=== PATIENT | female | born 1995 | race American Indian/Alaskan Native ===

== ENCOUNTER 2018-02-19 12:48 | Emergency (ER) | payer SELFPAY ==
[2018-02-19 12:54] VITALS: BP 161/88
--- NOTE | 2018-02-19 13:56 | XRay Report ---
ROUTINE CHEST, TWO VIEWS: HISTORY: Cough. The trachea, heart, mediastinal contour, lung seay and bony thorax are unremarkable. IMPRESSION: Unremarkable chest x-ray.
--- NOTE | 2018-02-19 14:14 | Emergency Department Report ---
- General Chief Complaint: Upper Respiratory Infection Stated Complaint: PINK EYE Time Seen by Provider: 02/19/18 13:20 Source: patient Mode of arrival: Ambulatory Limitations: No Limitations - History of Present Illness Initial Comments: This is a 22-year-old female nontoxic, well nourished in appearance, no acute signs of distress presents to the ED with c/o of productive cough, subjective fever, bilateral earache, sore throat, right eye crusting and itching, rhinorrhea, nasal congestion x2 days. Patient describes productive cough as yellow mucus production. Patient stated sick contact was spouse. Patient denies any recent travels, long car, recent hospital stays. Patient denies any calf pain or calf tenderness. Patient denies any chest pain, short of breath nausea, vomiting, hemoptysis, numbness, tingling, headache or stiff neck. Patient denies any allergies or PMH. MD Complaint: fever, cough, sore throat, rhinorrhea, nasal congestion, other ( bilateral ear pain) -: days(s) (2) Severity: mild Severity scale (0 -10): 8 Quality: aching Consistency: constant Improves With: nothing Worsens With: nothing Associated Symptoms: fever, chills, rhinorrhea, nasal congestion, sore throat, cough, ear pain. denies: myalgias, diaphoresis, headache, stiff neck, chest pain, shortness of breath, abdominal pain, nausea, vomiting, diarrhea, dysuria, rash, confusion, right sweats, weight loss, epistaxis, hoarseness Treatments Prior to Arrival: none - Related Data Previous Rx's Medication Instructions Recorded Last Taken Type metroNIDAZOLE 0.75% [Vandazole 1 applicator VG QHS #1 tube 10/09/15 Unknown Rx 0.75% VAGINAL] Amoxicillin/K Clav Tab [Augmentin 1 tab PO Q12HR #20 tab 02/19/18 Unknown Rx 875 mg] Ciprofloxacin 0.2%(Nf) 4 drops TID 7 Days #1 droperette 02/19/18 Unknown Rx [Ciprofloxacin Otic 0.2%(Nf)] Ibuprofen [Motrin] 600 mg PO Q8H PRN #30 tablet 02/19/18 Unknown Rx Loratadine [Claritin] 10 mg PO DAILY #30 tablet 02/19/18 Unknown Rx Polymyxin B Sulf/Trimethoprim 2 drops OD TID 7 Days #1 drops 02/19/18 Unknown Rx [Polytrim Eye Drops] Allergies Allergy/AdvReac Type Severity Reaction Status Date / Time No Known Allergies Allergy Verified 10/09/15 22:45 ED Review of Systems ROS: Stated complaint: PINK EYE Other details as noted in HPI Constitutional: chills, fever Eyes: denies: eye pain, eye discharge, vision change ENT: ear pain, throat pain Respiratory: cough. denies: shortness of breath, wheezing Cardiovascular: denies: chest pain, palpitations Endocrine: no symptoms reported Gastrointestinal: denies: abdominal pain, nausea, diarrhea Genitourinary: denies: urgency, dysuria, discharge Musculoskeletal: denies: back pain, joint swelling, arthralgia Skin: denies: rash, lesions Neurological: denies: headache, weakness, paresthesias Psychiatric: denies: anxiety, depression Hematological/Lymphatic: denies: easy bleeding, easy bruising ED Past Medical Hx - Past Medical History Previous Medical History?: No - Surgical History Past Surgical History?: No - Social History Smoking Status: Never Smoker Substance Use Type: None - Medications Home Medications: Home Medications Medication Instructions Recorded Confirmed Last Taken Type metroNIDAZOLE 0.75% [Vandazole 1 applicator VG QHS #1 tube 10/09/15 Unknown Rx 0.75% VAGINAL] Amoxicillin/K Clav Tab [Augmentin 1 tab PO Q12HR #20 tab 02/19/18 Unknown Rx 875 mg] Ciprofloxacin 0.2%(Nf) 4 drops TID 7 Days #1 droperette 02/19/18 Unknown Rx [Ciprofloxacin Otic 0.2%(Nf)] Ibuprofen [Motrin] 600 mg PO Q8H PRN #30 tablet 02/19/18 Unknown Rx Loratadine [Claritin] 10 mg PO DAILY #30 tablet 02/19/18 Unknown Rx Polymyxin B Sulf/Trimethoprim 2 drops OD TID 7 Days #1 drops 02/19/18 Unknown Rx [Polytrim Eye Drops] ED Physical Exam - General Limitations: No Limitations General appearance: alert, in no apparent distress - Head Head exam: Present: atraumatic, normocephalic - Eye Eye exam: Present: normal appearance, PERRL, EOMI, other (crutsing and sclera erythema) Pupils: Present: normal accommodation - ENT ENT exam: Present: mucous membranes moist - Expanded ENT Exam Expanded Ear exam: Present: normal external inspection TM/Canal exam: Erythema: Left TM, Bulging: Left TM Mouth exam: Present: normal external inspection, tongue normal. Absent: drooling, trismus, muffled voice, tongue elevation, laceration Teeth exam: Present: normal inspection Throat exam: Positive: tonsillar erythema, tonsillomegaly (2+), tonsillar exudate, other (Uvula midline. No abscess or swelling noted. ). Negative: R peritonsillar mass, L peritonsillar mass - Neck Neck exam: Present: normal inspection, full ROM, lymphadenopathy (bilateral tonsillar). Absent: tenderness, meningismus, thyromegaly - Respiratory Respiratory exam: Present: normal lung sounds bilaterally. Absent: respiratory distress, wheezes, rales, rhonchi, stridor, chest wall tenderness, accessory muscle use, decreased breath sounds, prolonged expiratory - Cardiovascular Cardiovascular Exam: Present: regular rate, normal rhythm, normal heart sounds. Absent: irregular rhythm, systolic murmur, diastolic murmur, rubs, gallop - GI/Abdominal GI/Abdominal exam: Present: soft, normal bowel sounds. Absent: distended, tenderness, guarding, rebound, rigid, diminished bowel sounds - Rectal Rectal exam: Present: deferred - Extremities Exam Extremities exam: Present: normal inspection, full ROM, normal capillary refill - Back Exam Back exam: Present: normal inspection, full ROM - Neurological Exam Neurological exam: Present: alert, oriented X3, normal gait - Psychiatric Psychiatric exam: Present: normal affect, normal mood - Skin Skin exam: Present: warm, dry, intact, normal color. Absent: rash ED Course Vital Signs 02/19/18 12:52 Temperature 98.8 F Pulse Rate 106 H Respiratory 18 Rate Blood Pressure 161/88 O2 Sat by Pulse 96 Oximetry - Reevaluation(s) Reevaluation #1: 02/19/18 14:13 Patient is speaking in full sentences with no signs of distress noted. ED Medical Decision Making - Medical Decision Making This is a 22-year-old female that presents with bronchitis, otitis extrna, otitis media, and tonsillits with exudate. Patient is stable and was examined by me. Chest x-ray has been obtained and dictated by radiologist with normal exam. Patient is notified of x-ray results with no questions noted. Due to patient having symptoms of bronchitis and worsening I will treat patient empirically with augmentin. Patient was instructed to increase hydration, rest and take Motrin for fever episodes. Vitals stable. Patient is nonfebrile and normal heart rate. Patient was instructed Follow-up with a primary care doctor in 3-5 days or if symptoms worsen and continue return to emergency room as soon as possible. At time time of discharge, the patient does not seem toxic or ill in appearance. No acute signs of distress noted. Patient agrees to discharge treatment plan of care. No further questions noted by the patient. Critical care attestation.: If time is entered above; I have spent that time in minutes in the direct care of this critically ill patient, excluding procedure time. ED Disposition Clinical Impression: Tonsillitis with exudate Acute bronchitis Qualifiers: Bronchitis organism: unspecified organism Qualified Code(s): J20.9 - Acute bronchitis, unspecified Otitis media Qualifiers: Otitis media type: unspecified Laterality: left Qualified Code(s): H66.92 - Otitis media, unspecified, left ear Otitis externa Qualifiers: Otitis externa type: unspecified type Chronicity: acute Laterality: left Qualified Code(s): H60.502 - Unspecified acute noninfective otitis externa, left ear Conjunctivitis, right eye Qualifiers: Conjunctivitis type: acute Acute conjunctivitis type: bacterial Qualified Code( s): H10.31 - Unspecified acute conjunctivitis, right eye Allergic rhinitis Qualifiers: Allergic rhinitis trigger: pollen Allergic rhinitis seasonality: seasonal Qualified Code(s): J30.1 - Allergic rhinitis due to pollen Disposition: DC-01 TO HOME OR SELFCARE Is pt being admited?: No Does the pt Need Aspirin: No Condition: Stable Additional Instructions: Follow-up with a primary care doctor in 3-5 days or if symptoms worsen and continue return to emergency room as soon as possible. Prescriptions: Amoxicillin/K Clav Tab [Augmentin 875 mg] 1 tab PO Q12HR #20 tab Ciprofloxacin 0.2%(Nf) [Ciprofloxacin Otic 0.2%(Nf)] 4 drops TID 7 Days #1 droperette Ibuprofen [Motrin] 600 mg PO Q8H PRN #30 tablet PRN Reason: Pain Loratadine [Claritin] 10 mg PO DAILY #30 tablet Polymyxin B Sulf/Trimethoprim [Polytrim Eye Drops] 2 drops OD TID 7 Days #1 drops Referrals: PRIMARY CAREMD [Primary Care Provider] - 3-5 Days VIDAL CHAUDHARY MD [Staff Physician] - 3-5 Days [facility] [Outside] - 3-5 Days [facility] [Outside] - 3-5 Days Forms: Work/School Release Form(ED)
== END 2018-02-19 14:38 | disposition home or self-care (01) ==
LOC: ED 12:48
DX: H60.502 Unspecified acute noninfective otitis externa, left ear (principal); H10.31 Unspecified acute conjunctivitis, right eye; J30.1 Allergic rhinitis due to pollen; H66.92 Otitis media, unspecified, left ear; J20.9 Acute bronchitis, unspecified; J03.90 Acute tonsillitis, unspecified
CPT/HCPCS: 71046

== ENCOUNTER 2019-06-16 12:57 | Emergency (ER) | payer SELFPAY ==
--- NOTE | 2019-06-16 13:43 | Event Note ---
ED Screening Note Date of service: 06/16/19 Time: 13:39 ED Screening Note: This is a 23 y.o. F. that presents to the ER with abdominal pain x 5 days. Reports pain improve with passage of bowel. LMP 06/08/2019 Reports pain as dull and achy above umbilical. This initial assessment/diagnostic orders/clinical plan/treatment(s) is/are subject to change based on patients health status, clinical progression and re- assessment by fellow clinical providers in the ED. Further treatment and workup at subsequent clinical providers discretion. Patient/guardian urged not to elope from the ED as their condition may be serious if not clinically assessed and managed. Initial orders include: Labs and CT of abdomen
[2019-06-16 14:13] LABS: Basophils # (Auto) 0.1 K/mm3 (0.0-0.1); Basophils % (Auto) 0.9 % (0.0-1.8); Eosinophils # (Auto) 0.1 K/mm3 (0.0-0.4); Eosinophils % (Auto) 1.5 % (0.0-4.3); Lymphocytes # (Auto) 2.4 K/mm3 (1.2-5.4); Lymphocytes % (Auto) 35.7 % (13.4-35.0); Mean Corpuscular HGB Conc 31 % (30-34); Mean Corpuscular Volume 72 fl (79-97); Monocytes # (Auto) 0.4 K/mm3 (0.0-0.8); Monocytes % (Auto) 5.9 % (0.0-7.3); Platelet Count 280 K/mm3 (140-440); Red Blood Count 5.65 M/mm3 (3.65-5.03); Red Cell Distribution Width 15.1 % (13.2-15.2)
[2019-06-16 14:24] LABS: Hematocrit 40.8 % (30.3-42.9); Hemoglobin 12.6 gm/dl (10.1-14.3)
[2019-06-16 14:32] VITALS: BP 139/81
[2019-06-16 14:37] LABS: Hemolysis Index 0
[2019-06-16 14:58] LABS: Alanine Aminotransferase 13 units/L (7-56); Albumin 4.4 g/dL (3.9-5); BUN/Creatinine Ratio 15; Blood Urea Nitrogen 9 mg/dL (7-17); Calcium 9.6 mg/dL (8.4-10.2)
--- NOTE | 2019-06-16 15:25 | Cat Scan Report ---
CT abdomen pelvis w con INDICATION / CLINICAL INFORMATION: Mid abdominal pain. TECHNIQUE: The patient received 100 cc Omnipaque [address] scans at this location are performed using CT dose reduction for ALARA by means of automated exposure control. COMPARISON: None available. FINDINGS: ABDOMEN: There are a couple of tiny calcified stones in the gallbladder. The gallbladder is normal in size without wall thickening. The liver, spleen, bile ducts, pancreas, adrenal glands, kidneys and b owel demonstrate no significant abnormality. No adenopathy is seen. The lung bases are clear. PELVIS: The distal ureters and urinary bladder are normal. The uterus and adnexal regions are unremar kable. A normal appendix is present and there is no evidence of diverticulitis. No abnormal mass or f luid collection is seen. I do not identify a hernia. No acute osseous abnormality is seen. IMPRESSION: Minimal cholelithiasis without CT evidence of acute cholecystitis or other significant ab normality. Signer Name: Lalo Nath MD Signed: 06/16/2019 3:21 PM Workstation Name: [id number]
[2019-06-16 15:59] LABS: Bilirubin,Urine NEG (Negative); Blood,Urine NEG (Negative); Color,Urine Yellow (Yellow); Mucus,Urine 3+ /HPF; Protein,Urine <15 mg/dL mg/dL (Negative); Urobilinogen,Urine < 2.0 mg/dL (<2.0)
--- NOTE | 2019-06-16 16:01 | Emergency Department Report ---
ED Abdominal Pain HPI - General Chief Complaint: Abdominal Pain Stated Complaint: UPPER ABD PAIN Time Seen by Provider: 06/16/19 13:39 Source: patient Mode of arrival: Ambulatory Limitations: No Limitations - History of Present Illness Initial Comments: This 23-year-old female who states she's been to the emergency department for similar complaints in the past. She does not report a history of previous ultrasound. She describes an area above her umbilicus which she states bulges out when she sits up and is slightly painful. She is not been specifically diagnosed for this before told she has a hernia. He simply thought she would have it checked out today. This been no nausea vomiting fever chills or any respiratory symptoms. She does not complain of any urinary symptoms whatsoever. Patient has no postprandial problems. She has no fatty food intolerance. She does not report a family history of gallbladder disease. MD Complaint: abdominal pain -: Gradual Location: epigastric (upper) Radiation: none Migration to: periumbilical Severity scale (0 -10): 3 Quality: aching Consistency: intermittent Improves With: nothing Worsens With: other Context: other Associated Symptoms: denies other symptoms. denies: nausea, vomiting, diarrhea, fever, chills, constipation, dysuria, hematemesis, hematochezia - Related Data Previous Rx's Medication Instructions Recorded Last Taken Type metroNIDAZOLE 0.75% [Vandazole 1 applicator VG QHS #1 tube 10/09/15 Unknown Rx 0.75% VAGINAL] Amoxicillin/K Clav Tab [Augmentin 1 tab PO Q12HR #20 tab 02/19/18 Unknown Rx 875 mg] Ciprofloxacin 0.2%(Nf) 4 drops TID 7 Days #1 droperette 02/19/18 Unknown Rx [Ciprofloxacin Otic 0.2%(Nf)] Ibuprofen [Motrin] 600 mg PO Q8H PRN #30 tablet 02/19/18 Unknown Rx Loratadine [Claritin] 10 mg PO DAILY #30 tablet 02/19/18 Unknown Rx Polymyxin B Sulf/Trimethoprim 2 drops OD TID 7 Days #1 drops 02/19/18 Unknown Rx [Polytrim Eye Drops] Allergies Allergy/AdvReac Type Severity Reaction Status Date / Time No Known Allergies Allergy Verified 06/16/19 13:41 ED Review of Systems ROS: Stated complaint: UPPER ABD PAIN Other details as noted in HPI Constitutional: denies: chills, fever Eyes: denies: eye pain, eye discharge, vision change ENT: denies: ear pain, throat pain Respiratory: denies: cough, shortness of breath, wheezing Cardiovascular: denies: chest pain, palpitations Endocrine: no symptoms reported Gastrointestinal: abdominal pain. denies: nausea, vomiting, diarrhea Genitourinary: denies: urgency, dysuria, discharge Musculoskeletal: denies: back pain, joint swelling, arthralgia Skin: denies: rash, lesions Neurological: denies: headache, weakness, paresthesias Psychiatric: denies: anxiety, depression Hematological/Lymphatic: denies: easy bleeding, easy bruising ED Past Medical Hx - Past Medical History Previous Medical History?: No - Surgical History Past Surgical History?: No - Social History Smoking Status: Never Smoker Substance Use Type: None - Medications Home Medications: Home Medications Medication Instructions Recorded Confirmed Last Taken Type metroNIDAZOLE 0.75% [Vandazole 1 applicator VG QHS #1 tube 10/09/15 Unknown Rx 0.75% VAGINAL] Amoxicillin/K Clav Tab [Augmentin 1 tab PO Q12HR #20 tab 02/19/18 Unknown Rx 875 mg] Ciprofloxacin 0.2%(Nf) 4 drops TID 7 Days #1 droperette 02/19/18 Unknown Rx [Ciprofloxacin Otic 0.2%(Nf)] Ibuprofen [Motrin] 600 mg PO Q8H PRN #30 tablet 02/19/18 Unknown Rx Loratadine [Claritin] 10 mg PO DAILY #30 tablet 02/19/18 Unknown Rx Polymyxin B Sulf/Trimethoprim 2 drops OD TID 7 Days #1 drops 02/19/18 Unknown Rx [Polytrim Eye Drops] ED Physical Exam - General Limitations: Physical Limitation (obesity) General appearance: alert, in no apparent distress - Head Head exam: Present: atraumatic, normocephalic - Eye Eye exam: Present: normal appearance. Absent: scleral icterus - ENT ENT exam: Present: mucous membranes moist - Neck Neck exam: Present: normal inspection. Absent: tenderness, meningismus - Respiratory Respiratory exam: Present: normal lung sounds bilaterally. Absent: respiratory distress - Cardiovascular Cardiovascular Exam: Present: regular rate, normal rhythm. Absent: systolic murmur, diastolic murmur, rubs, gallop - GI/Abdominal GI/Abdominal exam: Present: soft, normal bowel sounds, hernia, other (multiple small ventral hernia palpated in the seated position but not while supine. Think there is a tiny defect). Absent: distended, tenderness, guarding, rebou nd, rigid - Extremities Exam Extremities exam: Present: normal inspection - Back Exam Back exam: Present: normal inspection. Absent: CVA tenderness (R), CVA tenderness (L) - Neurological Exam Neurological exam: Present: alert, oriented X3, CN II-XII intact. Absent: motor sensory deficit - Psychiatric Psychiatric exam: Present: normal affect, normal mood - Skin Skin exam: Present: warm, dry, intact, normal color. Absent: rash ED Course Vital Signs 06/16/19 06/16/19 13:38 14:31 Temperature 98.7 F Pulse Rate 99 H 85 Respiratory 16 16 Rate Blood Pressure 111/78 139/81 [Right] O2 Sat by Pulse 99 99 Oximetry ED Medical Decision Making - Lab Data Result diagrams: 06/16/19 13:50 06/16/19 13:50 Laboratory Results - last 24 hr 06/16/19 06/16/19 06/16/19 13:50 13:50 13:50 WBC 6.8 RBC 5.65 H Hgb 12.6 Hct 40.8 MCV 72 L MCH 22 L MCHC 31 RDW 15.1 Plt Count 280 Lymph % (Auto) 35.7 H [place] % (Auto) 5.9 Eos % (Auto) 1.5 Baso % (Auto) 0.9 Lymph # 2.4 [place] # 0.4 Eos # 0.1 Baso # 0.1 Seg Neutrophils % 56.0 Seg Neutrophils # 3.8 Sodium 140 Potassium 3.9 Chloride 101.4 Carbon Dioxide 24 Anion Gap 19 BUN 9 Creatinine < 0.2 L Estimated GFR > 60 BUN/Creatinine Ratio 15 Glucose 107 H Calcium 9.6 Total Bilirubin < 0.20 AST 12 ALT 13 Alkaline Phosphatase 132 H Total Protein 8.3 H Albumin 4.4 Albumin/Globulin Ratio 1.1 Lipase 3 L HCG, Qual Negative Urine Bilirubin Urine RBC (Auto) U Epithel Cells (Auto) 06/16/19 14:16 WBC RBC Hgb Hct MCV MCH MCHC RDW Plt Count Lymph % (Auto) [place] % (Auto) Eos % (Auto) Baso % (Auto) Lymph # [place] # Eos # Baso # Seg Neutrophils % Seg Neutrophils # Sodium Potassium Chloride Carbon Dioxide Anion Gap BUN Creatinine Estimated GFR BUN/Creatinine Ratio Glucose Calcium Total Bilirubin AST ALT Alkaline Phosphatase Total Protein Albumin Albumin/Globulin Ratio Lipase HCG, Qual Urine Bilirubin Neg Urine RBC (Auto) 1.0 U Epithel Cells (Auto) 1.0 Critical care attestation.: If time is entered above; I have spent that time in minutes in the direct care of this critically ill patient, excluding procedure time. ED Disposition Clinical Impression: Periumbilical hernia Disposition: - TO HOME OR SELFCARE Is pt being admited?: No Does the pt Need Aspirin: No Condition: Stable Instructions: Abdominal Pain (ED), Umbilical Hernia (ED) Additional Instructions: Return to the emergency department any acute change or septum. I would recommend evaluation by primary care doctor and surgeon. See referrals. Referrals: MARIANA GRADY MD [Primary Care Provider] - 3-5 Days MONICA HOWARD MD [Staff Physician] - 3-5 Days Time of Disposition: 16:02
== END 2019-06-16 16:08 | disposition home or self-care (01) ==
LOC: ED 12:57
DX: K42.9 Umbilical hernia without obstruction or gangrene (principal); Z79.899 Other long term (current) drug therapy
CPT/HCPCS: 36415; 74177; 80053; 81001; 83690; 84703; 85025; 99284; Q9967